=== PATIENT | male | born 1950 | race Caucasian/White ===

== ENCOUNTER 2017-11-27 14:43 | Inpatient (IN) | payer MEDICARE, BC ==
[~2017-11-27] VITALS: Ht 185.4 cm; Wt 91.0 kg
[2017-11-27 15:38] LABS: BASOPHILS % (AUTO) 0.4 % (0-1); EOSINOPHILS # (AUTO) 0.2 X10'3 (0-0.9); EOSINOPHILS % (AUTO) 1.6 % (0-6); HEMATOCRIT 48.3 % (42.0-52.0); HEMOGLOBIN 16.5 g/dl (14.0-17.9); LYMPHOCYTES # (AUTO) 1.6 X10'3 (1.1-4.8); MEAN CORPUSCULAR HEMOGLOBIN 32.4 PG (27.0-31.0); MEAN CORPUSCULAR HGB CONC 34.2 % (33.0-36.5); MEAN CORPUSCULAR VOLUME 94.7 FL (78-98); MEAN PLATELET VOLUME 7.6 FL (7.4-10.4); NEUTROPHILS # (AUTO) 7.3 X10'3 (1.8-7.7); PLATELET COUNT 179 X10'3 (140-440); RED CELL DISTRIBUTION WIDTH 13.7 % (11.5-14.5); WHITE BLOOD COUNT 10.1 X10'3 (4.5-11.0)
[2017-11-27 15:48] LABS: PARTIAL THROMBOPLASTIN TIME 29 SECONDS (22-32); PROTHROMBIN TIME 10.5 SECONDS (9.0-12.0)
[2017-11-27 16:02] LABS: ALANINE AMINOTRANSFERASE 18 U/L (12-78); ALBUMIN 3.7 G/DL (3.4-5.0); ALBUMIN/GLOBULIN RATIO 0.9 (1.1-1.5); ALKALINE PHOSPHATASE 64 IU/L (46-116); ANION GAP 11 (8-16); ASPARTATE AMINO TRANSFERASE 10 U/L (10-37); BLOOD UREA NITROGEN 19 MG/DL (7-18); BUN/CREATININE RATIO 12.2 (5.4-32.0); CALCIUM 8.7 MG/DL (8.5-10.1); CHLORIDE 100 MMOL/L (99-107); CREATININE 1.56 MG/DL (0.60-1.10); GLUCOSE 96 MG/DL (70-104); POTASSIUM 4.1 MMOL/L (3.5-5.1); SODIUM 136 MMOL/L (135-145); TOTAL CARBON DIOXIDE 24.7 MMOL/L (24-32); TOTAL PROTEIN 7.6 G/DL (6.4-8.2); TROPONIN I < 0.04 NG/ML (0.0-0.05); eGFR 45 ML/MIN
[2017-11-27] MEDS ORDERED: famotidine/PF 10 mg/ml inj IV ONE (16:25)
[2017-11-27] MEDS ORDERED: diphenhydrAMINE 50 mg/ml inj IV ONE (16:25)
[2017-11-27] MEDS ORDERED: acetaminophen 325mg tablet PO ONE (16:25)
[2017-11-27] MEDS ORDERED: metoclopramide 5 mg/ml inj IV ONE (16:25)
[2017-11-27] MEDS ORDERED: normal saline 1000ML IV soln IVB ONE (16:25)
[2017-11-27] MEDS ORDERED: TEST200V10 IM (16:28)
[2017-11-27] MEDS ORDERED: ASPI-974 PO (16:29)
[2017-11-27] MEDS ORDERED: CETI-102 PO (16:29)
[2017-11-27 17:53] LABS: HEMOGLOBIN A1C 5.4 % (4.5-6.2)
[2017-11-27] MEDS ORDERED: HYDROcodone/acetaminophen 5mg/325mg tablet PO ONE (19:30)
[2017-11-27] MEDS: normal saline 1000ml 1,000 ML IV SCH (19:31)
[2017-11-27] MEDS: aspirin/dipyridamole 25mg/200mg SR. capsule PO SCH (19:31)
[2017-11-27 20:45] VITALS: BP 139/91
[2017-11-27] MEDS ORDERED: MORPHINE 2MG in 2ml NS syringe IV PRN (23:05)
[2017-11-27] MEDS ORDERED: morphine 4 MG/ML inj SYRINge IV PRN (23:30)
[2017-11-28] VITALS (7 sets, daily range): BP systolic 111–140; BP diastolic 66–99
[2017-11-28 05:31] LABS: CHOLESTEROL 155 MG/DL (0-200); HDL CHOLESTEROL 31 MG/DL (35-60); LDL CHOLESTEROL 105 MG/DL (50-100); TRIGLYCERIDES 80 MG/DL (20-135)
[2017-11-28] MEDS: normal saline 1000ml 1,000 ML IV SCH ×2 (07:28→21:46)
[2017-11-28] MEDS: aspirin/dipyridamole 25mg/200mg SR. capsule PO SCH ×2 (08:00→20:18)
[2017-11-28] MEDS: enoxaparin 40mg/0.4ml syringe SQ SCH (09:09)
[2017-11-28] MEDS: atorvastatin 20mg tablet PO SCH (09:09)
[2017-11-28 11:06] LABS: BASOPHILS % (AUTO) 0.6 % (0-1); EOSINOPHILS # (AUTO) 0.1 X10'3 (0-0.9); HEMATOCRIT 43.6 % (42.0-52.0); HEMOGLOBIN 15.2 g/dl (14.0-17.9); LYMPHOCYTES # (AUTO) 1.6 X10'3 (1.1-4.8); LYMPHOCYTES % (AUTO) 21.9 % (21-51); MEAN CORPUSCULAR HEMOGLOBIN 32.8 PG (27.0-31.0); MEAN CORPUSCULAR HGB CONC 34.9 % (33.0-36.5); MEAN CORPUSCULAR VOLUME 94.1 FL (78-98); MEAN PLATELET VOLUME 7.4 FL (7.4-10.4); MONOCYTES # (AUTO) 0.7 X10'3 (0-0.9); MONOCYTES % (AUTO) 10.2 % (2-12); NEUTROPHILS # (AUTO) 4.8 X10'3 (1.8-7.7); NEUTROPHILS % (AUTO) 66.3 % (42-75); PLATELET COUNT 166 X10'3 (140-440); RED BLOOD COUNT 4.63 X10'6 (4.70-6.10); RED CELL DISTRIBUTION WIDTH 13.6 % (11.5-14.5); WHITE BLOOD COUNT 7.2 X10'3 (4.5-11.0)
[2017-11-28 11:21] LABS: ALANINE AMINOTRANSFERASE 14 U/L (12-78); ALBUMIN 2.9 G/DL (3.4-5.0); ALBUMIN/GLOBULIN RATIO 0.9 (1.1-1.5); ALKALINE PHOSPHATASE 53 IU/L (46-116); ANION GAP 10 (8-16); ASPARTATE AMINO TRANSFERASE 12 U/L (10-37); BILIRUBIN,TOTAL 0.6 MG/DL (0.1-1.0); BLOOD UREA NITROGEN 16 MG/DL (7-18); BUN/CREATININE RATIO 11.8 (5.4-32.0); CALCIUM 8.1 MG/DL (8.5-10.1); CHLORIDE 104 MMOL/L (99-107); CREATININE 1.36 MG/DL (0.60-1.10); GLUCOSE 107 MG/DL (70-104); POTASSIUM 3.9 MMOL/L (3.5-5.1); SODIUM 138 MMOL/L (135-145); TOTAL CARBON DIOXIDE 23.8 MMOL/L (24-32); eGFR 53 ML/MIN
[2017-11-28] MEDS: HYDROcodone/acetaminophen 5mg/325mg tablet PO PRN (20:18)
[2017-11-29] MEDS: HYDROcodone/acetaminophen 5mg/325mg tablet PO PRN ×3 (01:31→19:12)
[2017-11-29 03:00] VITALS: BP 132/91
[2017-11-29 07:32] VITALS: BP 127/87
[2017-11-29] MEDS: aspirin/dipyridamole 25mg/200mg SR. capsule PO SCH (08:00)
[2017-11-29] MEDS ORDERED: ondansetron/PF 4mg/2ml inj IV PRN (08:20)
[2017-11-29] MEDS: atorvastatin 20mg tablet PO SCH (09:12)
[2017-11-29] MEDS: enoxaparin 40mg/0.4ml syringe SQ SCH (09:12)
[2017-11-29] MEDS: normal saline 1000ml 1,000 ML IV SCH (12:06)
[2017-11-29] MEDS ORDERED: butalbital/acetaminophen/caffeine (Fioricet) tablet PO ONE (13:30)
[2017-11-29] MEDS ORDERED: metoprolol tartrate 1mg/ml inj IV PRN (16:40)
[2017-11-29] MEDS ORDERED: aminophylline 250mg/10ml inj. IV PRN (16:40)
[2017-11-29] MEDS ORDERED: nitroGLYCERIN 0.4mg SUBLingual tab SL PRN (16:40)
[2017-11-29] MEDS ORDERED: regadenoson 0.4mg/5ml syringe IV ONE (16:40)
[2017-11-29] MEDS ORDERED: butalbital/acetaminophen/caffeine (Fioricet) tablet PO PRN (18:25)
[2017-11-29 19:00] VITALS: BP 149/90
[2017-11-29 23:00] VITALS: BP 139/94
[2017-11-29] MEDS ORDERED: mag hydrox/Alum hydrox/simeth 30ml oral suspension PO PRN (23:55)
[2017-11-30] VITALS (14 sets, daily range): BP systolic 127–154; BP diastolic 77–105
[2017-11-30] MEDS: normal saline 1000ml 1,000 ML IV SCH (02:22)
[2017-11-30] MEDS: HYDROcodone/acetaminophen 5mg/325mg tablet PO PRN (07:23)
[2017-11-30] MEDS: atorvastatin 20mg tablet PO SCH (07:23)
[2017-11-30] MEDS: enoxaparin 40mg/0.4ml syringe SQ SCH (07:25)
[2017-11-30] MEDS ORDERED: aspirin 81mg tab.chew PO SCH (08:30)
[2017-11-30] MEDS ORDERED: regadenoson 0.4mg/5ml syringe IV ONE (09:13)
[2017-11-30] MEDS ORDERED: aminophylline inj. 10 ML IV ONE (09:13)
[2017-11-30] MEDS ORDERED: CARV3.122 PO (12:52)
== END 2017-11-30 14:55 | disposition home or self-care (01) | DRG 305 ==
LOC: ER 14:44 → ED HOLD 17:10 → SUR 3N 20:45
PROVIDERS: ADMIT Legal Medicine; ATTEND Family Medicine
PROC: 4A02XM4 Measurement of Cardiac Total Activity, External Approach (ICD-10-PCS; principal; 2017-11-30)
PROC: 3E033HZ Introduction of Radioactive Substance into Peripheral Vein, Percutaneous Approach (ICD-10-PCS; 2017-11-30)
DX: I16.0 Hypertensive urgency (principal); I48.91 Unspecified atrial fibrillation; E78.5 Hyperlipidemia, unspecified; I10 Essential (primary) hypertension; I25.10 Atherosclerotic heart disease of native coronary artery without angina pectoris; T78.3XXA Angioneurotic edema, initial encounter; K21.9 Gastro-esophageal reflux disease without esophagitis; M19.90 Unspecified osteoarthritis, unspecified site; K64.9 Unspecified hemorrhoids; N28.9 Disorder of kidney and ureter, unspecified; Z95.1 Presence of aortocoronary bypass graft; Z95.5 Presence of coronary angioplasty implant and graft; Z88.8 Allergy status to other drugs, medicaments and biological substances; Z79.82 Long term (current) use of aspirin; Z87.891 Personal history of nicotine dependence
CPT/HCPCS: 36415; 70450; 70544; 70551; 71045; 78452; 80053; 80061; 82948; 83036; 84484; 85025; 85610; 85730; 87070; 92616; 93005; 93017; 93306; 93880; A9500; J0280; J1650; J2270; J2765; J3490; J7030

== ENCOUNTER 2018-10-27 07:40 | Day surgery (SDC) | payer BC, MEDICARE ==
[2018-10-27] VITALS (8 sets, daily range): BP systolic 107–138; BP diastolic 63–95
[~2018-10-27] VITALS: Ht 185.4 cm; Wt 94.8 kg
[~2018-10-27 07:40] MED LIST: ASPI-974 PO; CARV3.122 PO; CETI-102 PO; TEST200V10 IM
[2018-10-27] MEDS ORDERED: sod bicarbonate 150mEq in D5W 1,150 ML IV ONE (08:05)
[2018-10-27 08:34] LABS: BASOPHILS % (AUTO) 0.5 % (0-1); EOSINOPHILS # (AUTO) 0.2 X10'3 (0-0.9); EOSINOPHILS % (AUTO) 2.7 % (0-6); HEMATOCRIT 45.1 % (42.0-52.0); HEMOGLOBIN 15.5 g/dl (14.0-17.9); LYMPHOCYTES # (AUTO) 1.6 X10'3 (1.1-4.8); MEAN CORPUSCULAR HEMOGLOBIN 32.1 PG (27.0-31.0); MEAN CORPUSCULAR HGB CONC 34.5 g/dL (33.0-36.5); MEAN CORPUSCULAR VOLUME 93.2 FL (78-98); MEAN PLATELET VOLUME 7.6 FL (7.4-10.4); MONOCYTES # (AUTO) 0.7 X10'3 (0-0.9); MONOCYTES % (AUTO) 11.4 % (2-12); NEUTROPHILS % (AUTO) 61.4 % (42-75); PLATELET COUNT 181 X10'3 (140-440); RED BLOOD COUNT 4.84 X10'6 (4.70-6.10); WHITE BLOOD COUNT 6.5 X10'3 (4.5-11.0)
[2018-10-27] MEDS ORDERED: LIDOcaine 1% (10mg/ml)w/preservative injection 20ml MDV ONE (08:42)
[2018-10-27] MEDS ORDERED: fentaNYL/PF 50MCG/1 ML 2ML syringe ONE (08:42)
[2018-10-27] MEDS ORDERED: iohexol 350 MG/ML 50ML vial IV ONE (08:42)
[2018-10-27] MEDS ORDERED: midazolam 2 mg/2 ml injection ONE ×2 (08:42→09:35)
[2018-10-27] MEDS ORDERED: iohexol 350MG/ML 100ml bottle IV ONE (08:42)
[2018-10-27] MEDS ORDERED: HYALURONIC ACID PO (08:46)
[2018-10-27] MEDS ORDERED: POTA99TA10 PO (08:46)
[2018-10-27] MEDS ORDERED: OMEP20TA23 PO (08:46)
[2018-10-27] MEDS ORDERED: HAWT500C PO (08:46)
[2018-10-27] MEDS ORDERED: RUTI500T PO (08:46)
[2018-10-27] MEDS ORDERED: LOSA25TA96 PO (08:46)
[2018-10-27 08:59] LABS: ALBUMIN 3.3 G/DL (3.4-5.0); ANION GAP 11 (8-16); BLOOD UREA NITROGEN 14 MG/DL (7-18); CALCIUM 8.6 MG/DL (8.5-10.1); CHLORIDE 105 MMOL/L (99-107); GLUCOSE 98 MG/DL (70-104); MAGNESIUM 1.9 MG/DL (1.5-2.4); POTASSIUM 4.1 MMOL/L (3.5-5.1); SODIUM 141 MMOL/L (135-145); eGFR 51 ML/MIN
[2018-10-27 09:21] LABS: PROTHROMBIN TIME 9.9 SECONDS (9.0-12.0)
[2018-10-27] MEDS ORDERED: normal saline 1000ml 1,000 ML IV SCH (10:25)
== END 2018-10-27 13:45 | disposition home or self-care (01) ==
LOC: SSTAY O 07:40
PROVIDERS: ATTEND Internal Medicine Cardiovascular Disease
DX: I25.119 Atherosclerotic heart disease of native coronary artery with unspecified angina pectoris (principal); K21.9 Gastro-esophageal reflux disease without esophagitis; I48.91 Unspecified atrial fibrillation; I10 Essential (primary) hypertension; Z79.899 Other long term (current) drug therapy; Z87.891 Personal history of nicotine dependence; Z95.5 Presence of coronary angioplasty implant and graft
CPT/HCPCS: 36415; 80048; 83735; 85025; 85610; 93005; 93459; 99152; 99153; A6257; J1644; J2001; J2250; J3010; J7030; Q9967; C1760; C1769; C1894